=== PATIENT | male | born 2000 | race Hispanic/Latino ===

== ENCOUNTER → 2022-12-04 | Day surgery (SDC) | payer OTHER ==
[~2022-12-04] MED LIST: ACETAMINOPHEN 1000 MG/100 ML 100 ML IV ONE; BUPIVACAINE 0.25% 30ML SDV ONE; CEFAZOLIN SODIUM 2 GM ONE; DEXAMETHASONE SOD PHOS 10 MG/1 ML VIAL ONE; DEXAMETHASONE SOD PHOS INJ 4 MG/ML SDV ONE; EPHEDRINE SULFATE INJ 50 MG/ML VIAL ONE; FENTANYL CITRATE/PF 100MCG/2 ML INJ ONE; HYDROMORPHONE 1MG/1ML INJ ONE; KETOROLAC TROMETHAMINE 30 MG/ML VIAL ONE; LACTATED RINGER'S 1,000 ML ONE; LIDOCAINE 1% W/EPINEPHRINE 20 ML VIAL ONE; LIDOCAINE HCL 2% LOCAL INJ 5 ML SDV VIAL INJ ONE; MELOXICAM7.5 MG PO; ONDANSETRON HCL INJ 2MG/ML 2ML 2 MG/ML VIAL ONE; POVIDONE IODINE 0.05% 0.05 % ML PO ONE; PROPOFOL IV EMULSION 10 MG/ML 20 ML VIAL ONE; ROPIVACAINE 0.5% 5 MG/ML 30 ML SDV ONE; SEVOFLURANE INHAL SOLN 250 ML PEN BTL ONE; Vancomycin IV 1 GM VIAL ONE
[2022-12-04 14:21] VITALS: TEMP 98.2
[2022-12-04 15:45] VITALS: BP 145/96; PULSE 97; RESP 18; O2SAT 98
== END | disposition home or self-care (01) ==
LOC: OR 08:25
PROVIDERS: ATTEND Orthopaedic Surgery
DX: S83.512A Sprain of anterior cruciate ligament of left knee, initial encounter (principal); S83.412A Sprain of medial collateral ligament of left knee, initial encounter; S76.112A Strain of left quadriceps muscle, fascia and tendon, initial encounter; S83.272A Complex tear of lateral meniscus, current injury, left knee, initial encounter; S83.262A Peripheral tear of lateral meniscus, current injury, left knee, initial encounter; S83.242A Other tear of medial meniscus, current injury, left knee, initial encounter; M65.9 Synovitis and tenosynovitis, unspecified; W17.89XA Other fall from one level to another, initial encounter; Y93.31 Activity, mountain climbing, rock climbing and wall climbing; Y99.8 Other external cause status; Z79.1 Long term (current) use of non-steroidal anti-inflammatories (NSAID)
CPT/HCPCS: 27427; 27599; 29882; C1713 ×4; C1769; J0131; J1100 ×2; J1170; J1885; J2001; J2405; J2704; J2795; J3010; J3370; J7121; 76000